=== PATIENT | male | born 1945 | race African-American/Black ===

== ENCOUNTER 2019-09-22 11:32 | Emergency (ER) | payer OTHER ==
[~2019-09-22] VITALS: Ht 172.7 cm; Wt 72.1 kg
[2019-09-22] MEDS ORDERED: ATENOLOL25 MG PO (12:44)
[2019-09-22] MEDS ORDERED: CARVEDILOL ER40 MG PO (12:45)
[2019-09-22] MEDS ORDERED: INTESTINEX680 M1 PO (15:06)
[2019-09-22] MEDS ORDERED: KRISTALOSE10 GM PO (15:06)
[2019-09-22] MEDS ORDERED: GAS RELIEF125 MG PO (15:06)
[2019-09-22] MEDS ORDERED: PEPCID AC20 MG PO (15:06)
== END 2019-09-22 16:21 | disposition home or self-care (01) ==
LOC: ER 11:32
DX: K29.70 Gastritis, unspecified, without bleeding (principal); K30 Functional dyspepsia